=== PATIENT | male | born 1990 | race African-American/Black ===

== ENCOUNTER 2020-02-13 01:42 | Emergency (ER) | payer OTHER, SELFPAY ==
[2020-02-13 18:40] LABS: SARS-CoV-2 MS2 Positive; SARS-CoV-2 N Gene Negative; SARS-CoV-2 S Gene Negative; SARS-CoV-2 orf1ab Negative
== END 2020-02-13 02:13 ==
LOC: MADERS 01:42
DX: R50.9 Fever, unspecified (principal); R05 Cough; F41.9 Anxiety disorder, unspecified; F32.9 Major depressive disorder, single episode, unspecified; Z20.828 Contact with and (suspected) exposure to other viral communicable diseases
CPT/HCPCS: 87635; 99283; U0003